=== PATIENT | female | born 1975 | race Caucasian/White ===

== ENCOUNTER → 2017-09-05 | Outpatient (REF) | payer BC ==
[2017-09-05 19:33] LABS: FREE T3 2.7 PG/ML (2.2-4.0); FREE T4 1.13 NG/DL (0.76-1.46)
== END ==
LOC: M LAB REF 17:42
DX: E04.1 Nontoxic single thyroid nodule (principal)
CPT/HCPCS: 84443

== ENCOUNTER → 2018-02-11 | Outpatient (CLI) | payer BC | LOC: M ADAMS 08:46 | DX: M79.674 Pain in right toe(s) (principal) ==

== ENCOUNTER → 2019-05-13 | Outpatient (REF) | payer BC ==
[~2019-05-13] MED LIST: ACET500C OR; DOCU10CA PO; IBUP800T OR; IBUP80TA PO; MAPA500T2 PO; MILKSUS OR; PRENTAB8 PO; STUATAB PO
[2019-05-13 18:32] LABS: AMYLASE 67 U/L (25-115); LIPASE 168 U/L (73-393)
== END ==
LOC: M LAB REF 16:34
PROVIDERS: ATTEND Family Medicine
DX: R10.816 Epigastric abdominal tenderness (principal)

== ENCOUNTER → 2020-03-26 | Outpatient (REF) | payer BC | LOC: M LAB REF 17:08 | PROVIDERS: ATTEND Internal Medicine Endocrinology, Diabetes & Metabolism | DX: E04.1 Nontoxic single thyroid nodule (principal) ==

== ENCOUNTER → 2022-06-14 | Outpatient (REF) | payer BC | LOC: M PLALAB 14:02 | PROVIDERS: ATTEND Advanced Practice Midwife | DX: Z12.4 Encounter for screening for malignant neoplasm of cervix (principal) | CPT/HCPCS: 87624; G0123 ==

== ENCOUNTER → 2022-07-12 | Outpatient (CLI) | payer BC ==
[2022-07-12 08:53] LABS: FREE T4 0.99 NG/DL (0.89-1.76); THYROID STIMULATING HORMONE 1.019 uIU/ML (0.55-4.78)
== END ==
LOC: M LAB 07:28
PROVIDERS: ATTEND Internal Medicine Endocrinology, Diabetes & Metabolism
DX: C73 Malignant neoplasm of thyroid gland (principal)

== ENCOUNTER 2023-04-12 06:59 | Day surgery (SDC) | payer BC ==
[~2023-04-12] VITALS: Ht 167.6 cm; Wt 64.3 kg
[~2023-04-12 06:59] MED LIST changes: +FAMO40TA3 PO; +MAGN400C PO; +NS 1,000 ML IV ONE; +THERTAB52 PO; +VITA100093 PO
[2023-04-12 08:14] VITALS: TEMP 99.5
[2023-04-12] MEDS ORDERED: propofoL 200 MG/20 ML VIAL As Ordered ONE (08:19)
[2023-04-12 08:35] VITALS: BP 115/74; O2SAT 100
== END 2023-04-12 08:50 | disposition home or self-care (01) ==
LOC: M OPP 06:59
PROVIDERS: ATTEND Surgery
DX: Z12.11 Encounter for screening for malignant neoplasm of colon (principal); Z79.899 Other long term (current) drug therapy

== ENCOUNTER → 2023-09-11 | Outpatient (CLI) | payer BC ==
[~2023-09-11] MED LIST changes: -NS 1,000 ML IV ONE
== END ==
LOC: M RAD 07:00
PROVIDERS: ATTEND Advanced Practice Midwife
DX: N92.6 Irregular menstruation, unspecified (principal); R14.0 Abdominal distension (gaseous); N88.8 Other specified noninflammatory disorders of cervix uteri

== ENCOUNTER → 2024-06-03 | Outpatient (REF) | payer BC | LOC: M LAB REF 14:34 | PROVIDERS: ATTEND Family Medicine | DX: R19.7 Diarrhea, unspecified (principal) ==

== ENCOUNTER 2024-10-13 10:35 | Emergency (ER) | payer BC ==
[~2024-10-13] VITALS: Ht 167.6 cm; Wt 68.2 kg
[2024-10-13 10:42] VITALS: TEMP 99.5
[2024-10-13] MEDS ORDERED: ESTR1TD TD (10:51)
[2024-10-13] MEDS ORDERED: PROG1CAP8 PO (10:51)
[2024-10-13] MEDS: PANTOPRAZOLE 40MG VIAL IV ONE (11:29)
[2024-10-13] MEDS: ONDANSETRON 4MG 2ML VIAL IV ONE (11:29)
[2024-10-13] MEDS: KETOROLAC 30 MG/ML 1ML VIAL IV ONE (11:29)
[2024-10-13] MEDS: NS (Normal Saline) 0.9% 1,000 ML IV SCH (11:30)
[2024-10-13 11:42] LABS: BASO # 0.1 10^3/uL (0.0-0.2); BASO % 0.6 % (0.0-1.0); EOS % 0.1 % (0.0-3.0); HEMATOCRIT 38.7 % (36.0-47.0); HEMOGLOBIN 12.9 g/dl (12.0-15.5); LYMPH # 1.2 10^3/uL (1.5-5.0); LYMPH % 14.4 % (24.0-44.0); MEAN CORPUSCULAR HEMOGLOBIN 30.2 pg (27.0-33.0); MEAN CORPUSCULAR HGB CONC 33.3 g/dl (32.0-36.5); MEAN CORPUSCULAR VOLUME 90.6 fl (80.0-96.0); MONO # 0.7 10^3/uL (0.0-0.8); MONO % 8.2 % (2.0-8.0); NEUTROPHILS # 6.5 10^3/uL (1.5-8.5); NEUTROPHILS % 76.2 % (36.0-66.0); PLATELET COUNT, AUTOMATED 228 10^3/uL (150-450); RED BLOOD COUNT 4.27 10^6/uL (4.00-5.40); WHITE BLOOD COUNT 8.5 10^3/uL (4.0-10.0)
[2024-10-13 12:00] LABS: BILIRUBIN,DIRECT 0.2 MG/DL (<0.4); BILIRUBIN,TOTAL 0.6 MG/DL (0.3-1.2); CALCIUM LEVEL 8.9 MG/DL (8.5-10.1); CREATININE FOR GFR 0.92 MG/DL (0.55-1.30); GLOMERULAR FILTRATION RATE 77.3 (>58); POTASSIUM SERUM 3.7 MMOL/L (3.5-5.1); TOTAL PROTEIN 6.7 G/DL (5.7-8.2)
[2024-10-13] MEDS ORDERED: ISOVUE-370 76% 100ML VIAL As Ordered ONE (14:56)
[2024-10-13] MEDS: GASTROGRAFIN SOLUTION 30ML PO SCH (15:20)
[2024-10-13 17:30] VITALS: BP 121/69; O2SAT 100
== END 2024-10-13 17:55 | disposition home or self-care (01) ==
LOC: EDBD 10:35 → M ED 10:35
DX: R55 Syncope and collapse (principal); K58.9 Irritable bowel syndrome, unspecified; Q44.6 Cystic disease of liver; K21.9 Gastro-esophageal reflux disease without esophagitis; Z79.899 Other long term (current) drug therapy
CPT/HCPCS: 74021; 74177; 76705; 80048; 80076; 83605; 83690; 85025; 96361; 96374; 99285; J1885; J2405; J2470; Q9963; Q9967

== ENCOUNTER → 2025-04-29 | Outpatient (CLI) | payer BC ==
[~2025-04-29] MED LIST changes: +ESTR1TD TD; +PROG1CAP8 PO
== END ==
LOC: M WHC 11:29
PROVIDERS: ATTEND Family Medicine
DX: Z85.850 Personal history of malignant neoplasm of thyroid (principal)